=== PATIENT | male | born 1935 | race Caucasian/White ===

== ENCOUNTER 2018-07-15 06:28 | Inpatient (IN) | payer MEDICARE ==
[2018-07-15] VITALS (7 sets, daily range): BP systolic 104–147; BP diastolic 82–96; BMI 28.0
[~2018-07-15] VITALS: Ht 193 cm; Wt 104.3 kg
[2018-07-15] MEDS ORDERED: NORCO 10-325 TA1 TAB (06:31)
[2018-07-15] MEDS ORDERED: XANAX1 MG (06:32)
[2018-07-15] MEDS ORDERED: AMRIX30 MG PO (06:32)
[2018-07-15] MEDS ORDERED: BAYER CHEWABLE81 MG (06:33)
[2018-07-15] MEDS ORDERED: LOVASTATIN10 MG (06:33)
[2018-07-15] MEDS ORDERED: LISINOPRIL2.5 MG (06:33)
[2018-07-15] MEDS ORDERED: DULCOLAX10 MG/SUPP (06:34)
[2018-07-15] MEDS ORDERED: ATARAX 25 MG TA25 MG (06:34)
[2018-07-15] MEDS ORDERED: FLUTICASONE PRO16 GM (06:34)
[2018-07-15] MEDS ORDERED: ABILIFY2 MG PO (06:34)
[2018-07-15] MEDS ORDERED: MIRALAX17 GM (06:35)
[2018-07-15 06:59] LABS: BASOPHILS 0.1 % (0-2); EOSINOPHILS 0.1 % (0-7); HEMATOCRIT 45.4 % (42.0-54.0); HEMOGLOBIN 15.6 g/dL (13.5-17.5); IMMATURE GRANULOCYTES 0.1 % (0-5); LYMPHOCYTES 7.9 % (15-50); MCH 31.6 pg (26.0-34.0); MCHC 34.4 g/dL (31.0-37.0); MCV 92.1 fL (80.0-100.0); MEAN PLATELET VOLUME 11.1 fL (7.4-10.4); MONOCYTES 7.9 % (2-11); NEUTROPHILS 83.9 % (40-80); PLATELET COUNT 310 10x3/uL (130-400); RBC 4.93 10x6/uL (4.20-6.10); RDW 13.5 % (11.5-14.5)
[2018-07-15] MEDS ORDERED: GLUCOPHAGE500 MG PO (07:12)
[2018-07-15 07:20] LABS: ANION GAP 15.1 mmol/L (8-16); CALCIUM 9.4 mg/dL (8.5-10.1); CREATININE - SERUM 1.1 mg/dL (0.6-1.3); POTASSIUM - SERUM 4.1 mmol/L (3.5-5.1)
[2018-07-15 17:49] LABS: AMYLASE - SERUM 22 U/L (25-115); LIPASE 57 U/L (73-393)
[2018-07-16 04:44] VITALS: BP 127/61
[2018-07-16 05:39] LABS: BASOPHILS 0.2 % (0-2); EOSINOPHILS 0.4 % (0-7); HEMATOCRIT 37.5 % (42.0-54.0); HEMOGLOBIN 12.2 g/dL (13.5-17.5); IMMATURE GRANULOCYTES 0.2 % (0-5); LYMPHOCYTES 19.2 % (15-50); MCH 30.5 pg (26.0-34.0); MCHC 32.5 g/dL (31.0-37.0); MCV 93.8 fL (80.0-100.0); MEAN PLATELET VOLUME 11.2 fL (7.4-10.4); MONOCYTES 13.7 % (2-11); NEUTROPHILS 66.3 % (40-80); PLATELET COUNT 243 10x3/uL (130-400); RDW 13.7 % (11.5-14.5); WBC 8.3 10x3/uL (4.8-10.8)
[2018-07-16 06:11] LABS: ALBUMIN 3.1 g/dL (3.4-5.0); ANION GAP 11.2 mmol/L (8-16); BILIRUBIN - TOTAL 0.61 mg/dL (0.2-1.3); CARBON DIOXIDE 28.7 mmol/L (21.0-32.0); CREATININE - SERUM 1.1 mg/dL (0.6-1.3); MAGNESIUM - SERUM 1.9 mg/dL (1.8-2.4); POTASSIUM - SERUM 3.9 mmol/L (3.5-5.1); PROTEIN - SERUM 6.4 g/dL (6.4-8.2)
[2018-07-16 06:21] LABS: INR 1.16 (0.85-1.17); PROTIME 14.4 SECONDS (11.6-15.0)
[2018-07-16 08:22] VITALS: BP 144/76
[2018-07-16 10:46] VITALS: Ht 193 cm; Wt 104.3 kg
[2018-07-16 12:42] VITALS: BP 139/79
[2018-07-16 16:19] VITALS: BP 140/78
[2018-07-16 22:28] VITALS: BP 147/73
[2018-07-17 04:59] VITALS: BP 124/66
[2018-07-17 05:21] LABS: BASOPHILS 0.1 % (0-2); EOSINOPHILS 0.2 % (0-7); HEMATOCRIT 36.1 % (42.0-54.0); HEMOGLOBIN 11.8 g/dL (13.5-17.5); IMMATURE GRANULOCYTES 0.2 % (0-5); LYMPHOCYTES 18.8 % (15-50); MCH 30.2 pg (26.0-34.0); MCHC 32.7 g/dL (31.0-37.0); MCV 92.3 fL (80.0-100.0); MEAN PLATELET VOLUME 11.1 fL (7.4-10.4); MONOCYTES 11.9 % (2-11); NEUTROPHILS 68.8 % (40-80); PLATELET COUNT 244 10x3/uL (130-400); RBC 3.91 10x6/uL (4.20-6.10); RDW 13.4 % (11.5-14.5); WBC 8.7 10x3/uL (4.8-10.8)
[2018-07-17 05:47] LABS: ALBUMIN 3.4 g/dL (3.4-5.0); ALKALINE PHOSPHATASE 48 U/L (46-116); ALT (SGPT) 27 U/L (10-68); BILIRUBIN - TOTAL 0.48 mg/dL (0.2-1.3); CALCIUM 8.7 mg/dL (8.5-10.1); CARBON DIOXIDE 27.4 mmol/L (21.0-32.0); CREATININE - SERUM 0.9 mg/dL (0.6-1.3); GLUCOSE 113 mg/dL (74-106); MAGNESIUM - SERUM 1.8 mg/dL (1.8-2.4); PROTEIN - SERUM 6.8 g/dL (6.4-8.2); eGFR NON AFRICAN AMERICAN 86 mL/min (90-120)
[2018-07-17 05:50] LABS: UREA NITROGEN 11 mg/dL (7-18)
[2018-07-17 06:01] LABS: CALC OSMOLALITY 282 mosm/kg (275-300); CHLORIDE - SERUM 105 mmol/L (98-107); POTASSIUM - SERUM 3.7 mmol/L (3.5-5.1); SODIUM 142 mmol/L (136-145)
[2018-07-17 06:58] VITALS: BP 160/81
[2018-07-17 16:14] VITALS: BP 131/89
[2018-07-17 20:27] VITALS: BP 139/86
[2018-07-18 01:03] VITALS: BP 130/80
[2018-07-18 04:59] VITALS: BP 1264/92
[2018-07-18 05:53] LABS: BASOPHILS 0.2 % (0-2); EOSINOPHILS 0.7 % (0-7); HEMATOCRIT 36.6 % (42.0-54.0); HEMOGLOBIN 12.2 g/dL (13.5-17.5); IMMATURE GRANULOCYTES 0.1 % (0-5); LYMPHOCYTES 19.3 % (15-50); MCH 30.4 pg (26.0-34.0); MCHC 33.3 g/dL (31.0-37.0); MCV 91.3 fL (80.0-100.0); MEAN PLATELET VOLUME 10.8 fL (7.4-10.4); MONOCYTES 12.1 % (2-11); NEUTROPHILS 67.6 % (40-80); PLATELET COUNT 251 10x3/uL (130-400); RBC 4.01 10x6/uL (4.20-6.10); RDW 13.1 % (11.5-14.5); WBC 8.1 10x3/uL (4.8-10.8)
[2018-07-18 06:26] LABS: ALBUMIN 3.5 g/dL (3.4-5.0); ALKALINE PHOSPHATASE 47 U/L (46-116); ALT (SGPT) 33 U/L (10-68); BILIRUBIN - TOTAL 0.66 mg/dL (0.2-1.3); CALC OSMOLALITY 281 mosm/kg (275-300); CALCIUM 8.6 mg/dL (8.5-10.1); CARBON DIOXIDE 26.3 mmol/L (21.0-32.0); CHLORIDE - SERUM 105 mmol/L (98-107); CREATININE - SERUM 0.9 mg/dL (0.6-1.3); GLUCOSE 117 mg/dL (74-106); POTASSIUM - SERUM 3.4 mmol/L (3.5-5.1); PROTEIN - SERUM 7.1 g/dL (6.4-8.2); SODIUM 142 mmol/L (136-145); eGFR NON AFRICAN AMERICAN 86 mL/min (90-120)
[2018-07-18 06:27] LABS: UREA NITROGEN 7 mg/dL (7-18)
[2018-07-18 15:53] VITALS: BP 159/97
[2018-07-18 20:05] VITALS: BP 195/100
[2018-07-19 03:43] VITALS: BP 182/95
[2018-07-19 06:44] LABS: BASOPHILS 0.1 % (0-2); EOSINOPHILS 1.1 % (0-7); HEMOGLOBIN 14.4 g/dL (13.5-17.5); IMMATURE GRANULOCYTES 0.2 % (0-5); LYMPHOCYTES 26.3 % (15-50); MCH 31.2 pg (26.0-34.0); MCHC 34.3 g/dL (31.0-37.0); MCV 90.9 fL (80.0-100.0); MEAN PLATELET VOLUME 11.3 fL (7.4-10.4); MONOCYTES 10.9 % (2-11); NEUTROPHILS 61.4 % (40-80); RBC 4.62 10x6/uL (4.20-6.10); RDW 13.2 % (11.5-14.5)
[2018-07-19 06:52] LABS: WBC 10.5 10x3/uL (4.8-10.8)
[2018-07-19 06:53] LABS: PLATELET COUNT 318 10x3/uL (130-400)
[2018-07-19 07:07] LABS: ALKALINE PHOSPHATASE 60 U/L (46-116); BILIRUBIN - TOTAL 0.72 mg/dL (0.2-1.3); CALC OSMOLALITY 280 mosm/kg (275-300); CALCIUM 9.2 mg/dL (8.5-10.1); CARBON DIOXIDE 27.5 mmol/L (21.0-32.0); CHLORIDE - SERUM 104 mmol/L (98-107); GLUCOSE 128 mg/dL (74-106); MAGNESIUM - SERUM 2.5 mg/dL (1.8-2.4); POTASSIUM - SERUM 3.1 mmol/L (3.5-5.1); SODIUM 141 mmol/L (136-145); UREA NITROGEN 8 mg/dL (7-18); eGFR NON AFRICAN AMERICAN 76 mL/min (90-120)
[2018-07-19 07:08] LABS: ALT (SGPT) 46 U/L (10-68)
[2018-07-19 08:05] VITALS: BP 139/93
== END 2018-07-19 15:13 | disposition home or self-care (01) | DRG 390 ==
LOC: D.ER 06:28 → D.MS 06:40 → D.EDHOLD 06:40 → D.MS 15:47
PROVIDERS: Family Medicine
PROC: 0D9670Z Drainage of Stomach with Drainage Device, Via Natural or Artificial Opening (ICD-10-PCS; principal; 2018-07-15)
DX: K56.50 Intestinal adhesions [bands], unspecified as to partial versus complete obstruction (principal); K59.00 Constipation, unspecified; E11.9 Type 2 diabetes mellitus without complications; E78.5 Hyperlipidemia, unspecified; I10 Essential (primary) hypertension; F41.8 Other specified anxiety disorders; Z85.46 Personal history of malignant neoplasm of prostate